=== PATIENT | male | born 1985 | race Hispanic/Latino ===

== ENCOUNTER 2025-03-12 03:03 | Emergency (ER) | payer OTHER ==
[~2025-03-12] VITALS: Ht 167.6 cm; Wt 97.5 kg
--- NOTE | 2025-03-12 03:40 | ERN ---
ED Note History of Present Illness Stated Complaint: FALL ONE WEEK AGO Chief Complaint: Mechanical Fall Time Seen by MD: 03:06 Dictation: Patient is a 39-year-old male who presented to the ER complaining of pain to the head, neck, upper back, right wrist, left hand and left shoulder x1 week. He said he fell from top of a truck, no loss of consciousness, he was trying to get away without seen physician or look for medical attention but the pain is getting worse reason he came into the ER tonight. Allergies: Coded Allergies: No Known Drug Allergies (Unverified Allergy, Unknown, 12/21/24) Home Meds No Active Prescriptions or Reported Meds Past Medical History Past Medical History: Diverticulitis Surgical History: None RN Note Reviewed/Agreed w/PFSH: Yes Review of System Dictation NEGATIVE EXCEPT PER HPI Constitutional: Negative for fever,chills, and weight loss Eyes: Negative for injury, pain,redness, and discharge ENT: Negative for injury,pain or swelling Cardiovascular: denies chest pain, palpitations, and edema Respiratory: Negative for shortness of breath, cough, and wheezing, Abdomen/GI: Negative for abdominal pain, nausea, vomiting, diarrhea, and constipation Back: Negative for injury and pain : Negative for injury, bleeding and discharge MS/Extremity: Neck pain, upper back pain, extremity pain, shoulder pain Skin: Negative for rash, and discoloration Neuro: Negative for headache, weakness, numbness, tingling, and seizure Psych: Negative for suicide ideation, homicidal ideation, and hallucinations Initial Vital Sign VS Vital Signs Date Time Temp Pulse Resp B/P (MAP) Pulse Ox O2 Delivery O2 Flow Rate FiO2 03/12/25 03:04 98.1 92 20 151/94 98 Room Air 03/12/25 03:13 0 21 Physical Exam Dictation General: awake, alert, NAD Head/Face: Normocephalic, atraumatic Eyes: PERRL, EOMI, vision at baseline ENT: oral cavity clear, TMs clear, no signs of infection Neck: Trachea midline, supple, no nuchal rigidity Cardiovascular: RRR, normal S1/S2, No MRGs, no JVD Respiratory: CTAB, no respiratory distress, No rales or wheezes Abdomen: Soft , no tender Skin: Warm, dry, normal turgor, no rash MS/Extremity: Pulses equal, no cyanosis, neurovascular intact, FROM Neuro: COAx4, GCS 15, strength 5/5, CN 2-12 intact, normal cerebellar exam, normal gait, Psych: Normal behavior, mood, and affect normal Results (Laboratory/Radiology) Labs Reviewed?: Yes X-RAY Comment: REASON: trauma,pain ORDERING PHYSICIAN: ALKA HERR MD PROCEDURE: CXR1VW - CHEST 1VW EXAM: CR Chest, 1 View. CLINICAL HISTORY: trauma, pain. COMPARISON: None. FINDINGS: Lungs show no pulmonary infiltrate or other acute finding. No pleural effusion. There is no pneumothorax. The cardiomediastinal silhouette is within normal limits. No acute osseous abnormality is seen. IMPRESSION: No acute cardiopulmonary disease. /[place] DICTATED BY: STAN MCMILLAN Jr., MD DATE: 03/12/25614 ELECTRONICALLY SIGNED BY: STAN MCMILLAN Jr., MD DATE: 03/12/25614 CT Scan Comment: Results were shared by telephone at 6:26 AM EST on 03-12-2025 and acknowledged by Nurse Mr. Chago Rose. /[place] EXAM: Non-contrast CT examination of the Brain CLINICAL HISTORY: Headache. Trauma history of a fall. TECHNIQUE: Thin collimated axial CT images of the brain were obtained, with sagittal and coronal reformatted images also submitted. CT scan is done according to ALARA (As Low as Reasonably Achievable). CONTRAST USED: None. COMPARISON: None provided. FINDINGS: No acute intracranial abnormality is present. No acute cortical infarction, hemorrhage, mass or mass effect. No hydrocephalus or abnormal extra-axial fluid collections. The posterior fossa is unremarkable. The skull base and calvarium are intact. The included portions of the paranasal sinuses and mastoid air cells are clear. Mild S-shaped deviation of the nasal septum. IMPRESSION: No evidence of calvarial fracture or extra-axial collection. No acute intracranial abnormality is present. /[place] DICTATED BY: STAN MCMILLAN Jr., MD DATE: 03/12/25628 ELECTRONICALLY SIGNED BY: DATE: EXAM: Non-contrast CT examination of the Brain CLINICAL HISTORY: Headache. Trauma history of a fall. TECHNIQUE: Thin collimated axial CT images of the brain were obtained, with sagittal and coronal reformatted images also submitted. CT scan is done according to ALARA (As Low as Reasonably Achievable). CONTRAST USED: None. COMPARISON: None provided. FINDINGS: No acute intracranial abnormality is present. No acute cortical infarction, hemorrhage, mass or mass effect. No hydrocephalus or abnormal extra-axial fluid collections. The posterior fossa is unremarkable. The skull base and calvarium are intact. The included portions of the paranasal sinuses and mastoid air cells are clear. Mild S-shaped deviation of the nasal septum. IMPRESSION: No evidence of calvarial fracture or extra-axial collection. No acute intracranial abnormality is present. /[place] DICTATED BY: STAN MCMILLAN Jr., MD DATE: 03/12/25613 ELECTRONICALLY SIGNED BY: STAN MCMILLAN Jr., MD DATE: 03/12/25613 REASON: trauma, fall ORDERING PHYSICIAN: ALKA HERR MD PROCEDURE: T SPINE WO - CT THORACIC SPINE W/O CONTRAST EXAM: CT Thoracic Spine Without IV contrast. CLINICAL HISTORY: Trauma, fall. TECHNIQUE: Axial computed tomography images of the thoracic spine without intravenous contrast. Sagittal and coronal reformatted images were generated. A CT scan is done according to ALARA (As Low As Reasonably Achievable). CONTRAST: None. COMPARISON: None provided. FINDINGS: BONES: No acute fracture or aggressive-appearing osseous lesion. Minimal anterior wedging of T11 and T12 vertebral bodies is most likely physiological or a variant of normal anatomy. ALIGNMENT: Mild straightening of thoracic curvature and subtle dextroscoliosis. DEGENERATIVE CHANGES: Degenerative changes as evidenced by multilevel anterior marginal osteophytes. Subtle irregularity of the superior endplates of the T11 and T12 vertebrae and the inferior endplates of T8 and T9 vertebrae. No significant central canal or neural foraminal stenosis. SOFT TISSUES: Basilar atelectasis in the included lung hurley. The rest of the soft tissues are unremarkable. IMPRESSION: No acute fracture or subluxation. Mild straightening of thoracic curvature and subtle dextroscoliosis- could be due to paraspinal muscle spasm. Mild spondylosis as detailed above. Minimal anterior wedging of T11 and T12 vertebrae is most likely physiological or a variant of normal anatomy. /[place] DICTATED BY: STAN MCMILLAN Jr., MD DATE: 03/12/25625 ELECTRONICALLY SIGNED BY: STAN MCMILLAN Jr., MD DATE: 03/12/25625 EXAM: CT Cervical Spine Without IV Contrast CLINICAL HISTORY: Pain. TECHNIQUE: Thin collimated axial CT images of the cervical spine were obtained, with sagittal and coronal reformatted images also submitted. A CT scan is done according to ALARA (As Low As Reasonably Achievable). CONTRAST: None. COMPARISON: None provided. FINDINGS: Fracture of the right lamina of the C7 vertebra. Superior endplate compression fracture of the T1 and T2 thoracic vertebrae. Loss of cervical lordosis. The region of the C3 and C4 vertebral bodies and posterior elements. Consistent with a congenital block vertebra. Normal bone density. The surrounding soft tissues are unremarkable. Level by level, disease is present as follows: C1-C2: No osteoarthritis. C2-C3: No disc bulge or herniation. No neural foraminal, lateral recess, or spinal canal stenosis. C3-C4: No disc bulge or herniation. No neural foraminal, lateral recess, or spinal canal stenosis. C4-C5: No disc bulge or herniation. No neural foraminal, lateral recess, or spinal canal stenosis. C5-C6: No disc bulge or herniation. No neural foraminal, lateral recess, or spinal canal stenosis. C6-C7: No disc bulge or herniation. No neural foraminal, lateral recess, or spinal canal stenosis. C7-T1: No disc bulge or herniation. No neural foraminal, lateral recess, or spinal canal stenosis. IMPRESSIONS: 1. Fracture of the right lamina of the C7 vertebra. Superior endplate compression fracture of the T1 and T2 thoracic vertebrae. 2. Fusion of the C3-C4 vertebral body and posterior element consistent with a congenital block vertebra. No significant disc bulges or neural foraminal narrowing. /[place] EXAM: CT Cervical Spine Without IV Contrast CLINICAL HISTORY: Pain. TECHNIQUE: Thin collimated axial CT images of the cervical spine were obtained, with sagittal and coronal reformatted images also submitted. A CT scan is done according to ALARA (As Low As Reasonably Achievable). CONTRAST: None. COMPARISON: None provided. FINDINGS: No acute fracture cervical vertebrae. Fracture of the right lamina of the C7 vertebra. Superior endplate compression fracture of the T1 and T2 thoracic vertebrae. Loss of cervical lordosis. The region of the C3 and C4 vertebral bodies and posterior elements. Consistent with a congenital block vertebra. Normal bone density. The surrounding soft tissues are unremarkable. Level by level, disease is present as follows: C1-C2: No osteoarthritis. C2-C3: No disc bulge or herniation. No neural foraminal, lateral recess, or spinal canal stenosis. C3-C4: No disc bulge or herniation. No neural foraminal, lateral recess, or spinal canal stenosis. C4-C5: No disc bulge or herniation. No neural foraminal, lateral recess, or spinal canal stenosis. C5-C6: No disc bulge or herniation. No neural foraminal, lateral recess, or spinal canal stenosis. C6-C7: No disc bulge or herniation. No neural foraminal, lateral recess, or spinal canal stenosis. C7-T1: No disc bulge or herniation. No neural foraminal, lateral recess, or spinal canal stenosis. IMPRESSIONS: 1. Fracture of the right lamina of the C7 vertebra. Superior endplate compression fracture of the T1 and T2 thoracic vertebrae. No fracture of the cervical vertebrae. 2. Fusion of the C3-C4 vertebral body and posterior element consistent with a congenital block vertebra. No significant disc bulges or neural foraminal narrowing. /[place] DICTATED BY: STAN MCMILLAN Jr., MD DATE: 03/12/25828 ELECTRONICALLY SIGNED BY: DATE: EXAM: CT Cervical Spine Without IV Contrast CLINICAL HISTORY: Pain. TECHNIQUE: Thin collimated axial CT images of the cervical spine were obtained, with sagittal and coronal reformatted images also submitted. A CT scan is done according to ALARA (As Low As Reasonably Achievable). CONTRAST: None. COMPARISON: None provided. FINDINGS: No acute fracture cervical vertebrae. Fracture of the right lamina of the C7 vertebra. Superior endplate compression fracture of the T1 and T2 thoracic vertebrae. Loss of cervical lordosis. The region of the C3 and C4 vertebral bodies and posterior elements. Consistent with a congenital block vertebra. Normal bone density. The surrounding soft tissues are unremarkable. Level by level, disease is present as follows: C1-C2: No osteoarthritis. C2-C3: No disc bulge or herniation. No neural foraminal, lateral recess, or spinal canal stenosis. C3-C4: No disc bulge or herniation. No neural foraminal, lateral recess, or spinal canal stenosis. C4-C5: No disc bulge or herniation. No neural foraminal, lateral recess, or spinal canal stenosis. C5-C6: No disc bulge or herniation. No neural foraminal, lateral recess, or spinal canal stenosis. C6-C7: No disc bulge or herniation. No neural foraminal, lateral recess, or spinal canal stenosis. C7-T1: No disc bulge or herniation. No neural foraminal, lateral recess, or spinal canal stenosis. IMPRESSIONS: 1. Fracture of the right lamina of the C7 vertebra. Superior endplate compression fracture of the T1 and T2 thoracic vertebrae. No fracture of the cervical vertebrae. 2. Fusion of the C3-C4 vertebral body and posterior element consistent with a congenital block vertebra. No significant disc bulges or neural foraminal narrowing. /[place] DICTATED BY: STAN MCMILLAN Jr., MD DATE: 03/12/25620 ELECTRONICALLY SIGNED BY: STAN MCMILLAN Jr., MD DATE: 03/12/25620 ED Course ED Course Orders Procedure Category Date Status Time Wrist Comp 3+Vws Rt RAD 03/12/25 Resulted 03:12 Hand 3+Vws Lt RAD 03/12/25 Resulted 03:12 Shoulder Comp 2+Vws Lt RAD 03/12/25 Resulted 03:12 Chest 1vw RAD 03/12/25 Resulted 03:12 Ct Head/Brain W/O CT 03/12/25 Resulted Contrast 03:12 Ct Cervical Spine W/O CT 03/12/25 Resulted Contrast 03:12 Ct Thoracic Spine W/O CT 03/12/25 Resulted Contrast 03:12 Acetaminophen 500mg PHA 03/12/25 Complete Tab (Tylenol 500mg T 03:30 Ibuprofen 800 Mg Tab PHA 03/12/25 Complete (Motrin) 03:30 Morphine 2mg Syg PHA 03/12/25 Complete (Morphine 2mg Syg) 04:00 Cbc Without LAB 03/12/25 Logged Differential 07:37 Basic Metabolic Panel LAB 03/12/25 Logged 07:37 Orphenadrine Citrate PHA 03/12/25 Complete (Norflex) 08:00 Current Medications Medications (Trade) Dose Ordered Sig/Wendy Route PRN Reason Start Time Stop Time Status Last Admin Dose Admin Acetaminophen (TYLenol 500MG TAB) 500 mg ONCE ONCE PO 03/12/25 03:30 03/12/25 03:36 DC 03/12/25 04:54 Ibuprofen (moTRIN) 800 mg ONCE ONCE PO 03/12/25 03:30 03/12/25 03:36 DC 03/12/25 04:53 Morphine Sulfate (morPHINE 2MG SYG) 2 mg ONCE ONCE IM 03/12/25 04:00 03/12/25 04:01 DC 03/12/25 04:54 Orphenadrine Citrate (Norflex) 60 mg ONCE ONCE IVP 03/12/25 08:00 03/12/25 08:01 DC Vital Signs Date Time Temp Pulse Resp B/P (MAP) Pulse Ox O2 Delivery O2 Flow Rate FiO2 03/12/25 08:00 98.6 96 18 145/95 97 Room Air* 0 03/12/25 06:24 97.9 95 18 128/88 97 Room Air* 0 03/12/25 03:13 97.9 103 18 133/93 97 Room Air* 0 03/12/25 03:04 98.1 92 20 151/94 98 Room Air Medical Decision Making MDM Patient is a 39-year-old male who presented to the ER complaining of pain to the head, neck, upper back, right wrist, left hand and left shoulder x1 week. He said he fell from top of a truck, no loss of consciousness, he was trying to get away without seen physician or look for medical attention but the pain is getting worse reason he came into the ER tonight. Fall Cervical spine injury Left wrist pain Fracture wrist, Left Images reports C7 fracture, T1, T2 fracture Patient placed on hard C-collar 7:00 a.m. assumed care of the patient.Mer This is a 39-year-old male who is obese does not have any routine health maintenance apparently fell a week ago as he was mumbling with something on the top of his truck he did not lose consciousness he is not on any blood thinners he stated that he fell on his knee left shoulder and left side of the face, he did not seek any medical attention however 2 days later he began experiencing severe pain in the right wrist neck and multiple areas. So he came into the ER for further evaluation Temperature 98 pulse 92 respirations 20 blood pressure 151/94 with a pulse oximetry of 98% on room air Patient has a history of tobacco abuse, ETOH as well as marijuana. Placed a call to radiologist to verify the C-spine findings due to conflicting reporting. 7:30 a.m.--discussed with Dr. Mcmillan, radiologist personally. He did state that patient does have a C7, T1-T2 fractures He also mentioned about multiple rib fractures. The right wrist fracture has been placed in a splint here Patient has been in hard cervical collar I updated the patient on the CT scan findings and plans to transfer him to the level 1 trauma center for additional measures and procedures deemed necessary as there is no availability of spine ortho, neurosurgery or trauma surgery services at this facility 7:45 a.m. initiated transfer to a trauma center as there is no availability of Trauma surgery or neurosurgery at this facility. 8:[address] Fadi Griffiths, trauma surgeon at [facility] who accepted the patient in transfer for ER to ER. Problem List Problem List: (1) Fall from standing (2) C7 cervical fracture (3) Fracture of vertebra at T1-T2 level of thoracic spine (4) Distal radial fracture (5) Multiple rib fractures DX & DISP Disposition: Transfer Departure Impression: Primary Impression: Distal radial fracture Additional Impressions: Fall, C7 cervical fracture, Fracture of vertebra at T1-T2 level of thoracic spine, Ribs, multiple fractures Condition: Stable Scripts No Active Prescriptions or Reported Meds Additional Instructions: The patient has been informed about all the diagnostic tests and procedures carried out in the emergency room today and has confirmed understanding of the results. Patient will be transferred to a facility that provides a higher level of care since such services are not accessible locally or within our immediate community. The patient is alert oriented and not experiencing any acute dis tress. There are no signs of sepsis and patient's hemodynamic status is stable at the moment. Medically, the patient is considered stable for transfer PATIENT WILL BE TRANSFERRED TO [facility] ER TO ER TRANSFER FOR MULTIPLE TRAUMA AND FRACTURES. Referrals: SELF,REFERRAL (PCP) ALKA HERR MD Mar 12, 2025 03:40 RANJEET POWELL MD Mar 12, 2025 07:45
--- NOTE | 2025-03-12 05:14 | HMCIMG ---
EXAM: CR left Shoulder, 2 views. CLINICAL HISTORY: trauma, pain COMPARISON: None. FINDINGS: There is no evidence of acute fracture, dislocation, or osseous lesion. The joint spaces are normal. No evidence of joint effusion. The soft tissues are unremarkable. IMPRESSION: No acute fracture or dislocation. /[place]
--- NOTE | 2025-03-12 05:15 | HMCIMG ---
EXAM: CR right Hand, 3 View. CLINICAL HISTORY: trauma, pain COMPARISON: None. FINDINGS: There is no evidence of acute fracture, dislocation, or osseous lesion. The joint spaces are well-preserved. The soft tissues are unremarkable. IMPRESSION: No acute fracture or dislocation. /[place]
--- NOTE | 2025-03-12 05:16 | HMCIMG ---
EXAM: Non-contrast CT examination of the Brain CLINICAL HISTORY: Headache. Trauma history of a fall. TECHNIQUE: Thin collimated axial CT images of the brain were obtained, with sagittal and coronal reformatted images also submitted. CT scan is done according to ALARA (As Low as Reasonably Achievable). CONTRAST USED: None. COMPARISON: None provided. FINDINGS: No acute intracranial abnormality is present. No acute cortical infarction, hemorrhage, mass or mass effect. No hydrocephalus or abnormal extra-axial fluid collections. The posterior fossa is unremarkable. The skull base and calvarium are intact. The included portions of the paranasal sinuses and mastoid air cells are clear. Mild S-shaped deviation of the nasal septum. IMPRESSION: No evidence of calvarial fracture or extra-axial collection. No acute intracranial abnormality is present. /[place]
--- NOTE | 2025-03-12 05:16 | HMCIMG ---
EXAM: CR Chest, 1 View. CLINICAL HISTORY: trauma, pain. COMPARISON: None. FINDINGS: Lungs show no pulmonary infiltrate or other acute finding. No pleural effusion. There is no pneumothorax. The cardiomediastinal silhouette is within normal limits. No acute osseous abnormality is seen. IMPRESSION: No acute cardiopulmonary disease. /[place]
--- NOTE | 2025-03-12 05:16 | HMCIMG ---
EXAM: CR right Wrist, 3 View. CLINICAL HISTORY: trauma, pain COMPARISON: None. FINDINGS: Acute fracture distal metaphysis of the radius with adjacent soft tissue swelling. The carpal bones demonstrate normal alignment. Joint spaces are normal. IMPRESSION: Acute fracture distal metaphysis of the radius with adjacent soft tissue swelling. /[place]
--- NOTE | 2025-03-12 05:23 | HMCIMG ---
EXAM: CT Cervical Spine Without IV Contrast CLINICAL HISTORY: Pain. TECHNIQUE: Thin collimated axial CT images of the cervical spine were obtained, with sagittal and coronal reformatted images also submitted. A CT scan is done according to ALARA (As Low As Reasonably Achievable). CONTRAST: None. COMPARISON: None provided. FINDINGS: No acute fracture cervical vertebrae. Fracture of the right lamina of the C7 vertebra. Superior endplate compression fracture of the T1 and T2 thoracic vertebrae. Loss of cervical lordosis. The region of the C3 and C4 vertebral bodies and posterior elements. Consistent with a congenital block vertebra. Normal bone density. The surrounding soft tissues are unremarkable. Level by level, disease is present as follows: C1-C2: No osteoarthritis. C2-C3: No disc bulge or herniation. No neural foraminal, lateral recess, or spinal canal stenosis. C3-C4: No disc bulge or herniation. No neural foraminal, lateral recess, or spinal canal stenosis. C4-C5: No disc bulge or herniation. No neural foraminal, lateral recess, or spinal canal stenosis. C5-C6: No disc bulge or herniation. No neural foraminal, lateral recess, or spinal canal stenosis. C6-C7: No disc bulge or herniation. No neural foraminal, lateral recess, or spinal canal stenosis. C7-T1: No disc bulge or herniation. No neural foraminal, lateral recess, or spinal canal stenosis. IMPRESSIONS: 1. Fracture of the right lamina of the C7 vertebra. Superior endplate compression fracture of the T1 and T2 thoracic vertebrae. No fracture of the cervical vertebrae. 2. Fusion of the C3-C4 vertebral body and posterior element consistent with a congenital block vertebra. No significant disc bulges or neural foraminal narrowing. /[place]
--- NOTE | 2025-03-12 05:27 | HMCIMG ---
EXAM: CT Thoracic Spine Without IV contrast. CLINICAL HISTORY: Trauma, fall. TECHNIQUE: Axial computed tomography images of the thoracic spine without intravenous contrast. Sagittal and coronal reformatted images were generated. A CT scan is done according to ALARA (As Low As Reasonably Achievable). CONTRAST: None. COMPARISON: None provided. FINDINGS: BONES: No acute fracture or aggressive-appearing osseous lesion. Minimal anterior wedging of T11 and T12 vertebral bodies is most likely physiological or a variant of normal anatomy. ALIGNMENT: Mild straightening of thoracic curvature and subtle dextroscoliosis. DEGENERATIVE CHANGES: Degenerative changes as evidenced by multilevel anterior marginal osteophytes. Subtle irregularity of the superior endplates of the T11 and T12 vertebrae and the inferior endplates of T8 and T9 vertebrae. No significant central canal or neural foraminal stenosis. SOFT TISSUES: Basilar atelectasis in the included lung hurley. The rest of the soft tissues are unremarkable. IMPRESSION: No acute fracture or subluxation. Mild straightening of thoracic curvature and subtle dextroscoliosis- could be due to paraspinal muscle spasm. Mild spondylosis as detailed above. Minimal anterior wedging of T11 and T12 vertebrae is most likely physiological or a variant of normal anatomy. /[employer]
[2025-03-12] MEDS: ORPHENADRINE 60MG/2ML IVP ONE (08:36)
[2025-03-12 08:38] LABS: NUCLEATED RED BLOOD CELLS 0.0 % (0.0-0.19); PLATELET COUNT (AUTO) 368.0 K/uL (130-400); RED BLOOD CELL COUNT(AUTO) 4.64 MIL/uL (4.50-6.20); RED CELL DISTRIBUTION WIDTH 13.8 % (11.0-15.5); WHITE BLOOD COUNT (AUTO) 8.5 K/uL (4.8-10.8)
[2025-03-12 08:46] LABS: CREATININE 0.7 mg/dL (0.5-1.3); GLOMERULAR FILTR. RATE CALC 119.0 mL/min (>90); GLUCOSE,RANDOM 104.0 mg/dL (70-105); SODIUM SERUM 135.0 mmol/L (136-145); UREA NITROGEN, BLOOD 4.0 mg/dL (7-18)
[2025-03-12 09:00] VITALS: BP 140/93; PULSE 91; RESP 17; TEMP 98.6; O2SAT 99
--- NOTE | 2025-03-12 09:01 | NUR ---
REPORT GIVEN TO SANJIV JARVIS AT [facility].
--- NOTE | 2025-03-12 09:08 | NUR ---
STEC TO SURVEYING CREW STAKE [employer]NER PATIENT
--- NOTE | 2025-03-12 09:14 | NUR ---
STEC TO ROUTE TO [facility]
== END 2025-03-12 09:13 | disposition short-term general hospital (02) ==
LOC: EDH 03:03
DX: S12.600A Unspecified displaced fracture of seventh cervical vertebra, initial encounter for closed fracture (principal); S52.591A Other fractures of lower end of right radius, initial encounter for closed fracture; S12.690A Other displaced fracture of seventh cervical vertebra, initial encounter for closed fracture; S22.018A Other fracture of first thoracic vertebra, initial encounter for closed fracture; S22.028A Other fracture of second thoracic vertebra, initial encounter for closed fracture; M25.531 Pain in right wrist; M25.512 Pain in left shoulder; E66.9 Obesity, unspecified; Z68.34 Body mass index [BMI] 34.0-34.9, adult; F17.200 Nicotine dependence, unspecified, uncomplicated; V89.9XXA Person injured in unspecified vehicle accident, initial encounter; Y93.89 Activity, other specified; Y92.89 Other specified places as the place of occurrence of the external cause; Y99.8 Other external cause status
CPT/HCPCS: 99285; 70450; 96374; 71045; 80048; 85027; 36415; 73130; 73030; 73110; 72125; 72128; 96372; 29125; J2270; J2360